=== PATIENT | male | born 1970 | race Caucasian/White ===

== ENCOUNTER 2023-07-09 16:46 | Emergency (ER) | payer BC, SELFPAY ==
[2023-07-09 16:49] VITALS: BP 148/97; PULSE 85; RESP 16; TEMP 35.7; O2SAT 96; BMI 33.4
[2023-07-09 16:50] VITALS: BP 148/97; PULSE 85; RESP 16; TEMP 35.7; O2SAT 96
--- NOTE | 2023-07-09 17:00 | ED.RN ---
pt stated his symptoms started on Friday with congestion and flu-like symptoms. now complaining of headache, dizziness, and some photophobia. states it feels like he is off balance .
[2023-07-09 18:00] VITALS: BP 134/78; PULSE 64; RESP 16; O2SAT 98
--- NOTE | 2023-07-09 18:35 | EDS_ITS ---
HPI HPI - URI History of Present Illness Chief Complaint: Weakness Narrative Narrative: 52-year-old male with 3-day history of headache, chills, body aches, low-grade fevers of 101 Fahrenheit. Patient states he is not nauseous. He is very tired. He slept most of the day today. He has decreased fluid intake but not because he is nauseous. Denies chest pain or shortness of breath. Is a mild cough. Patient's states he is starting to feel symptoms coming on. ROS ROS ED Constitutional Constitutional ED: Reports chills and fever(s); Denies sweats Eyes Eyes: Denies blurry vision or change in vision ENT ENT ED: Reports sore throat; Denies ear pain Cardiovascular Cardiovascular: Denies chest pain, palpitations or racing heartbeat Respiratory/Chest Respiratory/Chest: Denies cough, dyspnea or sputum Gastrointestinal Gastrointestinal: Denies abdominal pain, constipation, diarrhea, nausea or vo miting Genitourinary Genitourinary ED: Denies dysuria, hematuria or urinary frequency Musculoskeletal Musculoskeletal: Reports myalgias; Denies arthralgias or neck pain Integumentary Denies abscess, Abrasions or rash Neurologic Neurologic: Reports headache(s); Denies paresthesias or weakness Psychiatric Psychiatric: Denies anxiety, depression, suicidal ideation or suicidal thoughts Endocrine Endocrinology: Denies polydipsia or polyuria [facility] Medical History Anxiety Back pain HTN (hypertension) Hypercholesteremia Shoulder pain Thyroid disease Home Medications levothyroxine 200 mcg tablet PO 90 days #90 tabs 05/11/18 [History Last Taken Unknown] levothyroxine 50 mcg tablet PO 90 days #90 tabs 05/11/18 [History Last Taken Unknown] lisinopril 20 mg tablet PO 90 days #90 tabs 05/11/18 [History Last Taken Unknown] paroxetine HCl 40 mg tablet PO 90 days #90 tabs 05/11/18 [History Last Taken Unknown] simvastatin 80 mg tablet PO 90 days #90 tabs 05/11/18 [History Last Taken Unknown] metoclopramide HCl 10 mg tablet (Reglan) 10 mg PO Q6H PRN headache #20 tabs 07/09/23 [Rx Last Taken Unknown] ondansetron 4 mg disintegrating tablet 4 mg PO Q8H PRN PRN Nausea #20 tabs 07/09/23 [Rx Last Taken Unknown] Allergy/AdvReac Type Severity Reaction Status Date / Time No Known Allergies Allergy Verified 07/09/23 16:48 Surgical History History of shoulder surgery History of thumb surgery Hx of foot surgery Social History Smoking Status: Never smoker alcohol intake: current Alcohol type: beer EXAM Physical Exam Const Vital Signs: 07/09/23 16:49 07/09/23 16:50 07/09/23 16:55 Temperature 96.2 F L 96.2 F L Temperature Source Temporal Temporal Pulse Rate 85 85 Respiratory Rate 16 16 Respiratory Effort Normal Respiratory Pattern Normal Blood Pressure 148/97 H 148/97 H Blood Pressure Mean 114 114 Pulse Ox 96 96 Oxygen Delivery Method Room Air Room Air 07/09/23 18:00 Temperature Temperature Source Pulse Rate 64 Respiratory Rate 16 Respiratory Effort Respiratory Pattern Blood Pressure 134/78 H Blood Pressure Mean 96 Pulse Ox 98 Oxygen Delivery Method Room Air Positive well nourished General Appearance ED: NAD; Negative for pallor HEENT Reports moist mucous membranes HEENT Narrative: TMs normal. Eyes PERRL and EOMs intact bilaterally Neck no lymphadenopathy Resp normal respiratory effort and clear to auscultation bilaterally Cardio Rate: regular rate Rhythm: regular rhythm Neuro oriented x3 and CN's II-XII intact bilaterally Sensorium / Orientation: alert Motor Exam: strength 5/5 throughout Psych mental status grossly normal Skin General Skin Exam: Negative for jaundice or pallor MDM MDM MDM Narrative Medical decision making narrative: Patient presenting with fever, chills, body ache, headache. He states he is on ly taken Benadryl and Mucinex. Has not taken anything for his headache. I recommended Tylenol and ibuprofen for him. I also counseled him he likely has COVID or influenza and is likely something viral. Offered testing but the patient declines. Patient was given a work note so he can stay home. He is counseled to drink plenty of fluids. He is given medication for headache and nausea. Return precautions discussed. Impression: 1. Viral syndrome Lab Data Attestation: I reviewed the patient's lab results. Discharge Plan Triage Chief Complaint: Weakness ED Provider: Everett Matos Dx/Rx/DC Orders Instructions: ED Influenza (Adult) Prescriptions: New ondansetron 4 mg tablet,disintegrating 4 mg PO Q8H PRN PRN (Reason: Nausea) Qty: 20 0RF metoclopramide HCl [Reglan] 10 mg tablet 10 mg PO Q6H PRN (Reason: headache) Qty: 20 0RF No Action levothyroxine 50 mcg tablet PO 90 Days Qty: 90 levothyroxine 200 mcg tablet 200 mcg tablet PO 90 Days Qty: 90 lisinopril 20 mg tablet PO 90 Days Qty: 90 simvastatin 80 mg tablet PO 90 Days Qty: 90 paroxetine 40 mg tablet 40 mg tablet PO 90 Days Qty: 90 Stand Alone Forms: ED Work / School Excuse Primary Care Provider: Wilber Rodriguez Referrals: Wilber Rodriguez MD [Primary Care Provider] - Disposition Disposition: Home, Self Care
--- OUTSIDE RECORDS SUMMARY | 2023-07-09 19:39 | XMS RPT_ITS | CCD ---
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 Name Role Phone Jenelle Espinal MD Primary Care Provider JENELLE ESPINAL Attending Unavailable JENELLE ESPINAL Primary Care Unavailable Jenelle Espinal MD Primary Care Provider Unavailable Primary Care Provider UnavailYVETTE Birch Attending Unavail able Allergies Allergy Classification Reported Allergen(s) Allergy Type Date of Onset Reaction(s) Facility (2 sources) beta Sitosterol / ZINC CITRATE Drug Allergy 09-02-2022 [facility] Medications Current Medications Medication Drug Class(es) Dates Sig (Normalized) Sig (Original) amoxicillin 875 mg / clavulanate 125 mg oral tablet (2 sources) Penicillin-class Antibacterial Start: 06-21-2023 End: 06-28-2023 take 1 tablet by mouth twice daily amoxicillin-clav ulanate potassium (AUGMENTIN) 875-125 mg per tablet Take 1 tablet by mouth two times a day for 7 days. 14 tablet 0 06/21/2023 06/28/2023 Active Completed/Discontinued Medications Medication Drug Class(es) Dates Sig (Normalized) Sig (Original) [id number] 200 actuat albuterol 0.09 mg/actuat metered dose inhaler (1 source) beta2-Adrenergic Agonist Start: 03-06-2015 take 2 puff(s) by inhalation every four hours as needed for wheezing albuterol HFA (VENTOLIN HFA) 90 mcg/actuation inhaler Indications: Fever, unspecified fever cause Inhale 2 Puffs as instructed every 4 hours as needed for Wheezing/Shortness of Breath. 1 Inhaler 0 03/06/2015 Active Problems Problem Classification Problem Date Documented Da te Episodic/Chronic Anal and rectal conditions (1 source) Anal abscess; Translations: [Perianal abscess] Onset: 06-23-2023 Episodic Anxiety disorders (2 sources) Anxiety; Translations: [Anxiety disorder, unspecified] Onset: 07-25-2016 03-07-2022 Chronic Disorders of lipid metabolism (5 sources) Hypercholesterole jose ramon; Translations: [Pure hypercholesterole jose ramon, unspecified] Onset: 07-25-2016 Chronic Essential hypertension (5 sources) Essential hypertension; Translations: [Essential (primary) hypertension] Onset: 06-29-2021 Chronic Other upper respiratory disease (2 sources) Allergic rhinitis; Translations: [Allergic rhinitis, unspecified] Onset: 07-25-2016 03-07-2022 Chronic Skin and subcutaneous tissue infections (1 source) Abscess of buttock; Translations: [Cutaneous abscess of buttock] 06-21-2023 Episodic Thyroid disorders (5 sources) Acquired hypothyroidism; Translations: [Hypothyroidism, unspecified] Onset: 06-03-2018 Chronic Viral infection (1 source) Disease caused by 2019-nCoV; Translations: [COVID-19] Episodic Results Test Name Value Interpretation Reference Range Facil ity Vital Signs Date Time Vital Sign Value Performing Clinician Mauricio cuevas 06-21-2023 14:34-0500 Body temperature 97.39 [degF] Marta Estrada APRN.STAGE ELECTRICIAN HELPER Work Phone: [facility] 06-21-2023 14:34-0500 Body weight 114.76 kg Marta Estrada COOKER TENDER.STAGE ELECTRICIAN HELPER Work Phone: [facility] 06-21-2023 14:34-0500 Diastolic blood pressure 80 mm[Hg] Marta Estrada COOKER TENDER.STAGE ELECTRICIAN HELPER Work Phone: [facility] 06-21-2023 14:34-0500 Heart rate 96 /min Marta Estrada COOKER TENDER.STAGE ELECTRICIAN HELPER Work Phone: [facility] 06-21-2023 14:34-0500 Respiratory rate 16 /min Marta Estrada COOKER TENDER.STAGE ELECTRICIAN HELPER Work Phone: [facility] 06-21-2023 14:34-0500 SaO2% (BldA) [Mass fraction] 100 % Marta Estrada COOKER TENDER.STAGE ELECTRICIAN HELPER Work Phone: [facility] 06-21-2023 14:34-0500 Systolic blood pressure 124 mm[Hg] Marta Estrada APRN.CNP Work Phone: [facility] 09-02-2022 08:15-0400 Diastolic blood pressure 78 mm[Hg] Jenelle Espinal MD Work Phone: [facility] 09-02-2022 08:15-0400 Systolic blood pressure 124 mm[Hg] Jenelle Espinal MD Work Phone: [facility] 09-02-2022 07:47-0400 Body height 182.9 cm Jenelle Espinal MD Work Phone: [facility] 09-02-2022 07:47-0400 Body mass index (BMI) [Ratio] 34.04 kg/m2 Jenelle Espinal MD Work Phone: [facility] 09-02-2022 07:47-0400 Body weight 113.85 kg Jenelle Espinal MD Work Phone: [facility] 09-02-2022 07:47-0400 Heart rate 106 /min Jenelle Espinal MD Work Phone: [facility] 09-02-2022 07:47-0400 SaO2% (BldA) [Mass fraction] 98 % Jenelle Espinal MD Work Phone: [facility] Encounters Encounter Date Encounter Type Care Provider Facility Start: 06-23-2023 End: 06-23-2023 ambulatory [facility] Facility:[facility] Start: 06-21-2023 End: 06-21-2023 ambulatory Facility:[facility] Start: 06-21-2023 End: 06-21-2023 Office outpatient new 30 minutes Marta Estrada APRN.STAGE ELECTRICIAN HELPER Work Phone: [facility] Procedures Date Procedure Procedure Detail Performing Clinician Start: 09-02-2022 Adult depression scr eening assessment Jenelle Espinal MD Work Phone: Start: 07-31-2022 Lipid 1996 panel - S judith or Plasma Jenelle Espinal MD Work Phone: Start: 07-31-2022 Thyrotropin [Units/v olume] in Serum or Plasma Jenelle Espinal MD Work Phone: Plan of Treatment Date Care Activity Detail Author Start: 06-03-2028 DTaP/Tdap/Td Vaccines (3 - Td or Tdap) DTaP/Tdap/Td Vaccines (3 - Td or Tdap) [facility] Start: 06-03-2028 Urine microalbumin profile DTaP,Tdap,Td Vaccine (3 - Td or Tdap) [facility] Start: 08-01-2027 Lipid panel [facility] Start: 07-31-2025 Diabetes Screening Diabetes Screening [facility] Start: 09-04-2023 End: 09-04-2023 Patient encounter procedure [facility] Start: 09-03-2023 Depression Screening Depression Screening [facility] Start: 08-01-2023 Thyroid stimulating hormone measurement TSH Level [facility] Start: 05-26-2023 Depression Assessment Depression Assessment [facility] Start: 01-24-2023 Covid-19 Vaccine ( season) Covid-19 Vaccine ( season) [facility] Start: 01-24-2023 Influenza vaccination [facility] Start: 10-14-2022 End: 09-03-2023 Thyrotropin [Units/volume] in Serum or Plasma TSH Lab Routine Acquired hypothyroidism Expected: 10/14/2022 (Approximate), Expires: 09/03/2023 [facility] Work Phone: Immunizations Immunization Date Immunization Notes Care Provider Fa [facility] 04-11-2020 influenza, injectabl e, quadrivalent, preservative free Jenelle Espinal MD Work Phone: [facility] 04-11-2020 influenza virus vacc ine, unspecified formulation Jenelle Espinal MD Work Phone: [facility] 06-03-2018 tetanus and diphther ia toxoids, adsorbed, preservative free, for adult use (5 Lf of tetanus toxoid and 2 Lf of diphtheria toxoid) Jenelle Espinal MD Work Phone: [facility] 03-06-2016 influenza, injectabl e, quadrivalent, contains preservative Jenelle Espinal MD Work Phone: [facility] 03-09-2015 influenza virus vacc ine, unspecified formulation Jenelle Espinal MD Work Phone: [facility] 04-03-2011 influenza virus vacc ine, unspecified formulation Jenelle Espinal MD Work Phone: [facility] 04-03-2011 influenza virus vacc ine, whole virus Jenelle Espinal MD Work Phone: [facility] 11-04-2007 tetanus toxoid, redu melida diphtheria toxoid, and acellular pertussis vaccine, adsorbed Jenelle Espinal MD Work Phone: [facility] Payers Date Payer Category Payer Unknown [id number] 2022 Unknown [id number] Social History Date Type Detail Facility Start: 09-02-2022 End: 06-21-2023 Tobacco smoking status NHIS Never smoked tobacco [facility] Start: 09-02-2022 End: 06-21-2023 Tobacco use and exposure User of smokeless tobacco [facility] History of tobacco use Snuff User [facility] Start: 09-02-2022 Alcohol intake Current drinker of alcohol (finding) [facility] Start: 09-02-2022 End: 06-21-2023 Alcohol intake [facility] Start: 09-02-2022 History SDOH Alcohol Frequency 2 [facility] Start: 09-02-2022 History SDOH Alcohol Std Drinks 1 [facility] Start: 09-02-2022 History SDOH Physical Activity DPW 0 [facility] Start: 09-02-2022 History SDOH Financial 5 [facility] Start: 09-02-2022 Alcohol Comment 10 drinks a wk [facility] Start: 1970 Sex Assigned At Not on file [facility] Start: 09-02-2022 End: 06-21-2023 Alcohol Use Disorder Identification Test - Consumption [AUDIT-C] [facility] How often to you hav e a drink containing alcohol? Monthly or less [facility] How many standard dr inks containing alcohol do you have on a typical day? 1 or 2 [facility] How often do you hav e 6 or more drinks on 1 occasion? Never [facility] How hard is it for y ou to pay for the very basics like food, housing, medical care, and heating Not hard at all [facility] (I/We) worried talaisamar er (my/our) food would run out before (I/we) got money to buy more. Never true [facility] History of tobacco use Chews Tobacco [facility] Work Phone: Start: 06-21-2023 Alcohol intake Not Asked [facility] Start: 06-21-2023 Tobacco Comment occasional chew [facility] Clinical Notes 09-02-2022 to 06-23-2023 Marta Estrada APRN.STAGE ELECTRICIAN HELPER - 06/21/2023 2:37 PM ESTTelephone Encounter - Jenelle Espinal MD - 02/10/2023 2:59 PM EDTTelephone Encounter - Jenelle Espinal MD - 02/10/2023 2:59 PM EDT Note Date & Type Note Facility 06-23-2023 Note HNO ID: [id number] Author: YVETTE CARLTON MD Service: ? Author Type: Physician Type: Progress Notes Filed: 06/23/2023 17:31 Note Text: Otto Wing is a 52 year old White male who presents with complaints of perianal drainage. He states he has had a lump there before on Friday it spontaneously drained. He went to urgent care and he was placed on antibiotics and presents today for evaluation. He denies any current pain or discomfort. He had a colonoscopy 2 years ago which was normal History reviewed. No pertinent past medical history. History reviewed. No pertinent surgical history. Social History Tobacco Use Smoking status: Never Smokeless tobacco: Current Types: Chew Tobacco comments: occasional chew No family history on file. ALLERGIES No Known Allergies Current Outpatient Medications Medication Sig amoxicillin-clavulanate potassium (AUGMENTIN) 875-125 mg per tablet Take 1 tablet by mouth two times a day for 7 days. SIMVASTATIN ORAL Take by mouth. LISINOPRIL ORAL Take by mouth. LEVOTHYROXINE SODIUM (SYNTHROID ORAL) Take by mouth. PAROXETINE HCL ORAL Take by mouth. albuterol HFA (VENTOLIN HFA) 90 mcg/actuation inhaler Inhale 2 Puffs as instructed every 4 hours as needed for Wheezing/Shortness of Breath. No current facility-administered medications for this visit. REVIEW OF SYSTEMS PAIN ASSESSMENT: Negative for pain, history of chronic pain, or current treatment for a chronic pain condition. GENERAL: No weight loss, malaise or fevers NECK: Negative for lumps, goiter, pain and significant neck swelling RESPIRATORY: Negative for cough, hemoptysis, wheezing, COPD, dyspnea or shortness of breath CARDIOVASCULAR: Negative for chest pain, leg swelling, hypertension, CHF or palpitations GI: No nausea, vomiting, or diarrhea : No history of dysuria, frequency or incontinence MUSCULOSKELETAL: Negative for joint pain or swelling, back pain or muscle pain HEMATOLOGY/LYMPHOLOGY: Negative for prolonged bleeding, bruising easily or swollen nodes ENDOCRINE: Negative for cold or heat intolerance, polyuria, polydipsia and goiter PHYSICAL EXAM: BP 128/84 Pulse 77 Resp 18 Ht 6' 1 (1.85m) Wt 253 lb (114.8kg) BMI 33.39 kg/(m2). General Appearance: Well appearing, alert, in no acute distress, well-hydrated, well nourished.. Right perianal abscess, positive drainage Assessment: Perianal abscess (primary encounter diagnosis) Plan: ASSESSMENT/PLAN: 1. Perianal abscess - ICD9: 566, ICD10: K61.0 Continue antibiotics. Sitz bath once to twice a day. Follow-up 4 weeks for reevaluation. Medical Decision Making: Problems: Moderate: New problem with uncertain prognosis Risk: Low: Low risk from testing/treatment Medical Decision Making Level: 3 - Low Yvette Carlton M.D., F.A.C.S. [facility] 06-21-2023 Note HNO ID: [id number] Author: MARTA ESTRADA APRN.STAGE ELECTRICIAN HELPER Service: ? Author Type: Nurse Practitioner Type: Progress Notes Filed: 06/21/2023 14:54 Note Text: Subjective HPI Nontoxic-appearing male presents urgent care chief complaint possible cyst. Duration of symptoms week to week and a half. Patient states he always felt a bump down in this region but over the last week to 10 days has became increasingly sore. States took a bath yesterday when he felt some drainage spontaneously come out from cyst. Patient presents today for evaluation. States it is tender but feels like it may be improving some. Has not use any OTC medications. Denies any history of MRSA. Denies history of abscesses in the past. No difficulty with bowel movements. Denies any fever body aches chills productive cough chest pain shortness of breath pleuritic pain hemoptysis nausea vomiting abdominal pain change in bowel or bladder habits. Past medical history prescription medication use and allergies reviewed. .Patient presents with: Derm Problem: underneath right buttock x 1 day History reviewed. No pertinent past medical history. History reviewed. No pertinent surgical history. ALLERGIES Patient has no known allergies. MEDICATIONS SIMVASTATIN ORAL Take by mouth. LISINOPRIL ORAL Take by mouth. LEVOTHYROXINE SODIUM (SYNTHROID ORAL) Take by mouth. PAROXETINE HCL ORAL Take by mouth. albuterol HFA (VENTOLIN HFA) 90 mcg/actuation inhaler Inhale 2 Puffs as instructed every 4 hours as needed for Wheezing/Shortness of Breath. History reviewed. No pertinent family history. Social History Tobacco Use Smoking status: Never Smokeless tobacco: Current Types: Chew Tobacco comments: occasional chew BP 124/80 Pulse 96 Temp 36.3 ?C (97.4 ?F) Resp 16 Wt 114.8 kg (253 lb) SpO2 100% Review of Systems Constitutional: Negative for chills, fever and malaise/fatigue. HENT: Negative for congestion, ear discharge, ear pain, sinus pain and sore throat. Eyes: Negative for blurred vision, pain, discharge and redness. Respiratory: Negative for cough, hemoptysis, sputum production, shortness of breath, wheezing and stridor. Cardiovascular: Negative for chest pain. Gastrointestinal: Negative for abdominal pain, diarrhea, nausea and vomiting. Musculoskeletal: Negative for myalgias. Skin: Negative for itching and rash. Neurological: Negative for dizziness and headaches. Objective Physical Exam Constitutional: General: He is not in acute distress. Appearance: He is not toxic-appearing. HENT: Head: Normocephalic. Nose: Nose normal. Eyes: Pupils: Pupils are equal, round, and reactive to light. Cardiovascular: Rate and Rhythm: Normal rate. Pulmonary: Effort: Pulmonary effort is normal. No respiratory distress. Genitourinary: Comments: 2 to 2-1/2 cm area of induration noted. Small amount of spontaneous drainage noted from center of abscess. No remote redness. Musculoskeletal: Cervical back: Normal range of motion. Skin: General: Skin is warm and dry. Neurological: General: No focal deficit present. Mental Status: He is alert. ASSESSMENT/PLAN: 1. Gluteal abscess - ICD9: 682.5, ICD10: L02.31 - ABSCESS AND WOUND CULTURE WITH GRAM STAIN - CONSULT TO GENERAL SURGERY Diagnosed with gluteal abscess. Placed on Augmentin. Follow-up with general surgery as discussed. Patient was educated on supportive therapies. Patient will follow up with primary care provider as needed. Patient was instructed to immediately proceed to emergency room for any new, worsening, or symptoms lasting longer than anticipated. The patient's clinical presentation is otherwise unremarkable at this time. Based on exam and clinical finding, the patient is stable for discharge. Plan of care was discussed with patient. Patient verbalizes understanding and agrees to plan of care. This note was generated using [employer] software. It may contain errors in wording, punctuation, or spelling. Marta Estrada APRN.[facility] 06-21-2023 History of Presen t illness Narrative Images from the original note were not included. Subjective HPI Nontoxic-appearing male presents urgent care chief complaint possible cyst. Duration of symptoms week to week and a half. Patient states he always felt a bump down in this region but over the last week to 10 days has became increasingly sore. States took a bath yesterday when he felt some drainage spontaneously come out from cyst. Patient presents today for evaluation. States it is tender but feels like it may be improving some. Has not use any OTC medications. Denies any history of MRSA. Denies history of abscesses in the past. No difficulty with bowel movements. Denies any fever body aches chills productive cough chest pain shortness of breath pleuritic pain hemoptysis nausea vomiting abdominal pain change in bowel or bladder habits. Past medical history prescription medication use and allergies reviewed. .Patient presents with: Derm Problem: underneath right buttock x 1 day History reviewed. No pertinent past medical history. History reviewed. No pertinent surgical history. ALLERGIES Patient has no known allergies. MEDICATIONS SIMVASTATIN ORAL Take by mouth. LISINOPRIL ORAL Take by mouth. LEVOTHYROXINE SODIUM (SYNTHROID ORAL) Take by mouth. PAROXETINE HCL ORAL Take by mouth. albuterol HFA (VENTOLIN HFA) 90 mcg/actuation inhaler Inhale 2 Puffs as instructed every 4 hours as needed for Wheezing/Shortness of Breath. History reviewed. No pertinent family history. Social History Tobacco Use Smoking status: Never Smokeless tobacco: Current Types: Chew Tobacco comments: occasional chew BP 124/80 Pulse 96 Temp 36.3 C (97.4 F) Resp 16 Wt 114.8 kg (253 lb) SpO2 100% Review of Systems Constitutional: Negative for chills, fever and malaise/fatigue. HENT: Negative for congestion, ear discharge, ear pain, sinus pain and sore throat. Eyes: Negative for blurred vision, pain, discharge and redness. Respiratory: Negative for cough, hemoptysis, sputum production, shortness of breath, wheezing and stridor. Cardiovascular: Negative for chest pain. Gastrointestinal: Negative for abdominal pain, diarrhea, nausea and vomiting. Musculoskeletal: Negative for myalgias. Skin: Negative for itching and rash. Neurological: Negative for dizziness and headaches. Objective Physical Exam Constitutional: General: He is not in acute distress. Appearance: He is not toxic-appearing. HENT: Head: Normocephalic. Nose: Nose normal. Eyes: Pupils: Pupils are equal, round, and reactive to light. Cardiovascular: Rate and Rhythm: Normal rate. Pulmonary: Effort: Pulmonary effort is normal. No respiratory distress. Genitourinary: Comments: 2 to 2-1/2 cm area of induration noted. Small amount of spontaneous drainage noted from center of abscess. No remote redness. Musculoskeletal: Cervical back: Normal range of motion. Skin: General: Skin is warm and dry. Neurological: General: No focal deficit present. Mental Status: He is alert. ASSESSMENT/PLAN: 1. Gluteal abscess - ICD9: 682.5, ICD10: L02.31 - ABSCESS AND WOUND CULTURE WITH GRAM STAIN - CONSULT TO GENERAL SURGERY Diagnosed with gluteal abscess. Placed on Augmentin. Follow-up with general surgery as discussed. Patient was educated on supportive therapies. Patient will follow up with primary care provider as needed. Patient was instructed to immediately proceed to emergency room for any new, worsening, or symptoms lasting longer than anticipated. The patient's clinical presentation is otherwise unremarkable at this time. Based on exam and clinical finding, the patient is stable for discharge. Plan of care was discussed with patient. Patient verbalizes understanding and agrees to plan of care. This note was generated using [employer] software. It may contain errors in wording, punctuation, or spelling. Marta Estrada APRN.STAGE ELECTRICIAN HELPER documented in this encounter [facility] 02-10-2023 Telephone encounter Note Refilled requested medication(s). [facility] 02-10-2023 Miscellaneous Notes Refilled requested medication(s). Last appointment 09/02/2022 , Next appointment is 09/04/23 Last filled 06/27/21 #90 4 refills Paxil Last filled 06/27/21 #90 4 refills Lisinopril Last filled 08/05/22 #30 No refills Zocor Last filled 08/05/22 #30 No refills Synthroid Name of caller: Shorty Contact phone number: [phone] Relationship to Patient: patient Provider: Dr. Espinal Practice: [facility] Chief Complaint/Reason for Call: Patient states that he is inquiring on the refill requests from yesterday. Patient states that he will be going out of town on Friday and needs the medications before then. Please advise. Best time of day caller can be reached: Any Patient advised that office/PCP has 24-48 business hours to return their call: No Ordering provider: Date of last office visit: 09/02/2022 Date of next office visit: 09/04/2023 Updated/Validated preferred pharmacy: yes Patient instructed to contact the pharmacy prior to picking up the medication: no (1) Medication name: synthroid Medication dosage: 200 mg (Miligrams Monthly quantity needed: 30 How many day supply requestin days Medication route: oral (PO) Medication administration time(s): daily If taking medication PRN, reason for taking medication: N/A If this is a controlled substance do you receive this or any other controlled medication from any other doctor or facility: No Date of last refill (see medication tab): 08/05/2022 (2) Medication name: simvastatin Medication dosage: 80 mg (Miligrams Monthly quantity needed: 30 How many day supply requestin days Medication route: oral (PO) Medication administration time(s): bedtime (HS) If taking medication PRN, reason for taking medication: N/A If this is a controlled substance do you receive this or any other controlled medication from any other doctor or facility: No Date of last refill (see medication tab): 08/05/2022 (3) Medication name: lisinopril Medication dosage: 20 mg (Miligrams Monthly quantity needed: 30 How many day supply requestin days Medication route: oral (PO) Medication administration time(s): daily If taking medication PRN, reason for taking medication: N/A If this is a controlled substance do you receive this or any other controlled medication from any other doctor or facility: No Date of last refill (see medication tab): 06/27/2021 (4) Medication name: paxil Medication dosage: 40 mg (Miligrams Monthly quantity needed: 30 How many day supply requestin days Medication route: oral (PO) Medication administration time(s): daily If taking medication PRN, reason for taking medication: N/A If this is a controlled substance do you receive this or any other controlled medication from any other doctor or facility: No Date of last refill (see medication tab): 06/27/2021 Please put refills on all meds documented in this encounter [facility] 02-10-2023 Telephone encounter Note Last appointment 09/02/2022 , Next appointment is 09/04/23 Last filled 06/27/21 #90 4 refills Paxil Last filled 06/27/21 #90 4 refills Lisinopril Last filled 08/05/22 #30 No refills Zocor Last filled 08/05/22 #30 No refills [facility]throid [facility] Telephone encounter Note Name of caller: Shorty Contact phone number: [phone] Relationship to Patient: patient Provider: Dr. Espinal Practice: [facility] Chief Complaint/Reason for Call: Patient states that he is inquiring on the refill requests from yesterday. Patient states that he will be going out of town on Friday and needs the medications before then. Please advise. Best time of day caller can be reached: Any Patient advised that office/PCP has 24-48 business hours to return their call: No T [facility] 02-07-2023 Telephone encounter Note Ordering provider: Date of last office visit: 09/02/2022 Date of next office visit: 09/04/2023 Updated/Validated preferred pharmacy: yes Patient instructed to contact the pharmacy prior to picking up the medication: no (1) Medication name: synthroid Medication dosage: 200 mg (Miligrams Monthly quantity needed: 30 How many day supply requestin days Medication route: oral (PO) Medication administration time(s): daily If taking medication PRN, reason for taking medication: N/A If this is a controlled substance do you receive this or any other controlled medication from any other doctor or facility: No Date of last refill (see medication tab): 08/05/2022 (2) Medication name: simvastatin Medication dosage: 80 mg (Miligrams Monthly quantity needed: 30 How many day supply requestin days Medication route: oral (PO) Medication administration time(s): bedtime (HS) If taking medication PRN, reason for taking medication: N/A If this is a controlled substance do you receive this or any other controlled medication from any other doctor or facility: No Date of last refill (see medication tab): 08/05/2022 (3) Medication name: lisinopril Medication dosage: 20 mg (Miligrams Monthly quantity needed: 30 How many day supply requestin days Medication route: oral (PO) Medication administration time(s): daily If taking medication PRN, reason for taking medication: N/A If this is a controlled substance do you receive this or any other controlled medication from any other doctor or facility: No Date of last refill (see medication tab): 06/27/2021 (4) Medication name: paxil Medication dosage: 40 mg (Miligrams Monthly quantity needed: 30 How many day supply requestin days Medication route: oral (PO) Medication administration time(s): daily If taking medication PRN, reason for taking medication: N/A If this is a controlled substance do you receive this or any other controlled medication from any other doctor or facility: No Date of last refill (see medication tab): 06/27/2021 Please put refills on all meds [facility] 09-02-2022 History of Presen t illness Narrative Images from the original note were not included. [facility] [id number] [facility] [id number] Visit Type: Physical PCP: Jenelle Espinal MD Reason for Visit: Annual Exam (Had covid recently, ears are still muffled and having some coughing, needs letter to return to work if able) Assessment and Plan Otto was seen today for annual exam. Diagnoses and all orders for this visit: Annual physical exam Essential hypertension Acquired hypothyroidism - TSH; Future - TSH Hypercholesteremia COVID-19 Labs reviewed from beginning of July with showed an elevated TSH. He stated that he had not been consistent with his Synthroid for some time which is likely the cause of being elevated. Discussed importance of being consistent with taking his Synthroid. He has been more consistent since that time. He would be due for a TSH in about 6 to 8 weeks which I have placed for him. He also has not been consistent with his Crestor which I have recommended that he return to taking daily. Fortunately he is symptomatically stable. From a COVID standpoint he would be cleared to work given that he is past the 10-day marnie for COVID and his symptoms have essentially resolved. A letter was provided for work. There are no discontinued medications. Follow up for Physical in 1 year. Subjective HPI PATIENT CONCERNS TODAY: Otto Wing presented to the office for a physical. He notes that he had COVID at the end of July, noticing some ear issues since. States that he overall does feel ryan from it. He has not returned to work yet. Health Maintenance: Colon Cancer Screen: Up to Date, follows with Dr. Francisco, last done 10/30/20, a hyperplastic polyp. Due in 2025 Eye exam: doesn't follow regularly Dental Exam: doesn't follow regularly Vaccines Up to date except for COVID Lifestyle: Exercise: does not regularly exercise Diet: usually an on the road diet Social History Alcohol use: He reports current alcohol use of about 10.0 standard drinks per week. Tobacco use: He reports that he has never smoked. His smokeless tobacco use includes snuff. Substance use: He reports no history of drug use. Sexual history: He has no history on file for sexual activity. Review of Systems Constitutional: Negative for activity change, appetite change and fatigue. HENT: Positive for congestion and ear pain. Negative for postnasal drip, rhinorrhea and sore throat. Respiratory: Negative for cough and shortness of breath. Cardiovascular: Negative for chest pain. Gastrointestinal: Negative for abdominal pain, constipation, diarrhea, nausea and vomiting. Skin: Negative for rash. All other systems reviewed and are negative. Immunization History Administered Date(s) Administered Influenza Whole 04/03/2011 Influenza, Unspecified 04/03/2011, 03/09/2015 Influenza, injectable, quadrivalent 03/06/2016 Influenza, injectable, quadrivalent, preservative free 04/11/2020 Pfizer SARS-CoV-2 Vaccination 04/30/2021, 05/21/2021 Td (adult), 5 Lf tetanus toxoid, preservative free, adsorbed 06/03/2018 Tdap 11/04/2007 Allergies Allergen Reactions Seasonal Ic [Cholestatin] Outpatient Medications Prior to Visit Medication Sig Dispense Refill lisinopril 20 MG tablet Take 1 tablet by mouth daily. PARoxetine (Paxil) 40 MG tablet Take 1 tablet by mouth every morning. simvastatin (Zocor) 80 MG tablet Take 1 tablet (80 mg) by mouth Nightly. 30 tablet 0 Synthroid 200 MCG tablet Take 1 tablet (200 mcg) by mouth every morning (before breakfast). 30 tablet 0 No facility-administered medications prior to visit. Past Medical History: Diagnosis Date Allergic rhinitis Anxiety Hypercholesteremia Hypertension Hypothyroid Social History Socioeconomic History Marital status: Tobacco Use Smoking status: Never Smokeless tobacco: Current Types: Snuff Tobacco comments: Quit smokin pouches in a year Vaping Use Vaping Use: Never used Substance and Sexual Activity Alcohol use: Yes Alcohol/week: 10.0 standard drinks Types: 10 Standard drinks or equivalent per week Comment: 10 drinks a wk Drug use: Never Social Determinants of Health Financial Resource Strain: Low Risk Difficulty of Paying Living Expenses: Not hard at all Food Insecurity: No Food Insecurity Worried About Running Out of Food in the Last Year: Never true Ran Out of Food in the Last Year: Never true Transportation Needs: No Transportation Needs Lack of Transportation (Medical): No Lack of Transportation (Non-Medical): No Physical Activity: Inactive Days of Exercise per Week: 0 days Minutes of Exercise per Session: 0 min Past Surgical History: Procedure Laterality Date FOOT SURGERY FX SHOULDER SURGERY R/L ( Arthroscopy) 04/05 THUMB SURGERY (HISTORICAL) Past Surgical History: Procedure Laterality Date FOOT SURGERY FX SHOULDER SURGERY R/L ( Arthroscopy) 04/05 THUMB SURGERY (HISTORICAL) Family History Problem Relation Name Age of Onset No Known Problems Father No Known Problems Daughter Depression Mother No Known Problems Sister No Known Problems Daughter No Known Problems Sister No Known Problems Sister Objective BP 124/78 Pulse 106 Ht 6' (1.829 m) Wt 251 lb (114 kg) SpO2 98% BMI 34.04 kg/m Physical Exam Vitals and nursing note reviewed. Constitutional: Appearance: Normal appearance. HENT: Head: Normocephalic and atraumatic. Right Ear: Tympanic membrane, ear canal and external ear normal. Left Ear: Tympanic membrane, ear canal and external ear normal. There is impacted cerumen. Nose: Congestion present. Mouth/Throat: Mouth: Mucous membranes are moist. Pharynx: Oropharynx is clear. Eyes: Extraocular Movements: Extraocular movements intact. Conjunctiva/sclera: Conjunctivae normal. Pupils: Pupils are equal, round, and reactive to light. Cardiovascular: Rate and Rhythm: Normal rate and regular rhythm. Pulses: Normal pulses. Heart sounds: Normal heart sounds. No murmur heard. Pulmonary: Effort: Pulmonary effort is normal. Breath sounds: Normal breath sounds. No wheezing. Abdominal: General: Abdomen is flat. Bowel sounds are normal. Palpations: Abdomen is soft. Tenderness: There is no abdominal tenderness. Musculoskeletal: General: Normal range of motion. Cervical back: Normal range of motion and neck supple. Skin: General: Skin is warm and dry. Capillary Refill: Capillary refill takes less than 2 seconds. Neurological: General: No focal deficit present. Mental Status: He is alert. Mental status is at baseline. Data Reviewed Labs: Recent Results (from the past 1008 hour(s)) CBC Collection Time: 07/31/22 9:06 AM Result Value Ref Range White Blood Cell Count 4.5 3.8 - 10.8 Thousand/uL RBC 4.68 4.20 - 5.80 Million/uL HEMOGLOBIN 15.4 13.2 - 17.1 g/dL HEMATOCRIT 44.8 38.5 - 50.0 % MCV 95.7 80.0 - 100.0 fL MCH 32.9 27.0 - 33.0 pg MCHC 34.4 32.0 - 36.0 g/dL RDW 12.8 11.0 - 15.0 % Platelet Count 216 140 - 400 Thousand/uL Mean Platelet Volume (MPV) 10.5 7.5 - 12.5 fL Lipid panel Collection Time: 07/31/22 9:06 AM Result Value Ref Range CHOLESTEROL, TOTAL 288 (H) <200 mg/dL HDL CHOLESTEROL 48 > OR = 40 mg/dL TRIGLYCERIDES 167 (H) <150 mg/dL LDL-CHOLESTEROL 207 (H) mg/dL (calc) CHOL/HDLC RATIO 6.0 (H) <5.0 (calc) NON HDL CHOLESTEROL 240 (H) <130 mg/dL (calc) TSH Collection Time: 07/31/22 9:06 AM Result Value Ref Range THYROID STIMULATING HORMONE 8.13 (H) 0.40 - 4.50 mIU/L Comprehensive Metabolic Panel ([facility]) Collection Time: 07/31/22 9:06 AM Result Value Ref Range GLUCOSE 102 (H) 65 - 99 mg/dL Urea Nitrogen (BUN) 13 7 - 25 mg/dL Creatinine 0.97 0.60 - 1.29 mg/dL EGFR 96 > OR = 60 mL/min/1.73m2 BUN/CREATININE RATIO NOT APPLICABLE 6 - 22 (calc) SODIUM 138 135 - 146 mmol/L POTASSIUM 4.2 3.5 - 5.3 mmol/L CHLORIDE 101 98 - 110 mmol/L Carbon Dioxide (CO2) 29 20 - 32 mmol/L CALCIUM 9.3 8.6 - 10.3 mg/dL PROTEIN, TOTAL - [facility] 7.3 6.1 - 8.1 g/dL ALBUMIN - [facility] 4.5 3.6 - 5.1 g/dL GLOBULIN - [facility] 2.8 1.9 - 3.7 g/dL (calc) ALBUMIN/GLOBULIN RATIO - [facility] 1.6 1.0 - 2.5 (calc) BILIRUBIN, TOTAL - [facility] 0.7 0.2 - 1.2 mg/dL ALKALINE PHOSPHATASE 63 36 - 130 U/L AST - [facility] 20 10 - 40 U/L ALT - [facility] 21 9 - 46 U/L Imaging/Testing: Jenelle Espinal MD 09/02/2022 10:59 AM documented in this encounter [facility] Diagnosis Gluteal abscess- Primary Cellulitis and abscess of buttock documented in this encounter [facility] Summary Purpose Family History No Family History Records FoundNo Family History Records FoundNo Family History Records Found Advance Directives No Advanced Directives Records FoundNo Advanced Directives Records FoundNo Advanced Directives Records Found Reason for Referral Specialty Diagnoses / Procedures Referred By Anurag carias Referred To Contact General Surgery Diagnoses Gluteal abscess Procedures CONSULT TO GENERAL SURGERY OFFICE/OUTPATIENT [facility] 60 MINUTES Marta Estrada APRN.[employer]ICIAN [employer] [address] [place] [address] Referral ID Status Reason Start Date Expiration Date Visits Requested Visits Authorized [id number] Authorized PCP Requested Referral 06/21/2023 06/20/2024 1 1 Additional Source Comments Reason for Visit (unrecogniz ed section and content) Reason Onset Date Comments Med Refill 02/07/2023 Reason Comments Derm Problem underneath right but tock x 1 day Care Teams (unrecognized sec tion and content) 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 [place] [address] PCP - General 04/11/20 (unrecognized sect ion and content) No Status Records FoundNo Status Records FoundNo Status Records Found INFORMATION SOURCE (unrecogn ized section and content) DATE CREATED AUTHOR AUTHOR'S ORGANIZ ATION 06/24/2023 [facility] DATE CREATED AUTHOR AUTHOR'S ORGANIZ ATION 06/28/2023 [facility] Source Comments (unrecognize d section and content) In the event this informatio n is protected by the Federal Confidentiality of Alcohol and Drug Abuse Patient Records regulations: The Federal rules restrict any use of the information to criminally investigate or prosecute any alcohol or drug abuse patient.[facility] FOR RECORDS PERTAINING TO PATIENTS WHO ARE OR HAVE BEEN ENROLLED IN A CHEMICAL DEPENDENCY/SUBSTANCEABUSE PROGRAM, SOME INFORMATION MAY BE OMITTED. This clinical summary was aggregated from multiple sources. Caution should be exercised in using it in the provision of clinical care. This summary normalizes information from multiple sources, and as a consequence, information in this document may materially change the coding, format and clinical context of patient data. In addition, data may be omitted in some cases. CLINICAL DECISIONS SHOULD BE BASED ON THE PRIMARY CLINICAL RECORDS. [employer] [facility]. provides no warranty or guarantee of the accuracy or completeness of information in this document.
== END 2023-07-09 18:46 | disposition home or self-care (01) ==
PROVIDERS: Emergency Provider Student in an Organized Health Care Education/Training Program; PCP Student in an Organized Health Care Education/Training Program; Visit Provider Student in an Organized Health Care Education/Training Program
DX: B34.9 Viral infection, unspecified (principal); R51.9 Headache, unspecified; J02.9 Acute pharyngitis, unspecified; I10 Essential (primary) hypertension; E78.00 Pure hypercholesterolemia, unspecified
CPT/HCPCS: 99282